=== PATIENT | male | born 1985 | race Caucasian/White ===

== ENCOUNTER 2020-05-28 11:34 | Emergency (ER) | payer MEDICARE, SELFPAY ==
[2020-05-28] VITALS (13 sets, daily range): BP systolic 152–255; BP diastolic 87–128; PULSE 62–98; RESP 18–22; TEMP 36.8–36.9; O2SAT 97–100; BMI 51.7
--- NOTE | 2020-05-28 11:40 | HMH.EDGENADL ---
ED Disposition Clinical Impression: Abdominal pain, generalized, Uncontrolled hypertension Vomiting Qualifiers: Vomiting type: unspecified Vomiting Intractability: non-intractable Nausea presence: with nausea Qualified Code(s): R11.2 - Nausea with vomiting, unspecified Disposition: Home, Self-Care Condition on Discharge: Good Instructions: DI for Abdominal Pain-Adult, DI for Vomiting -- Adult, DI for High Blood Pressure Additional Instructions: Zofran for nausea and vomiting. Protonix. Follow up with your hospital laboratory technician, call for appointment. Follow-up with your primary care doctor this week for your blood pressure. Additional instructions for ABDOMINAL PAIN: See your physician as soon as possible for further evaluation. Return immediately if worsening abdominal pain, vomiting, shortness of breath, fever, vomiting of blood or abdominal distention. Prescriptions: Pantoprazole Sodium [Protonix 40mg tablet] 40 mg PO DAILY #15 tab Transmission Status: Received by [facility] #[id number] Ondansetron [Zofran 4mg ODT] 4 mg PO TIDP PRN #10 tab.rapdis PRN Reason: Nausea And Vomiting Transmission Status: Received by [facility] #[id number] Referrals: Zenon Mitchell [Primary Care Provider] - - Critical Care Critical Care Time: No Attestation: On , the high probability of a clinically significant, sudden or life threatening deterioration of the following system(s) required my full and direct attention, intervention and personal management. The time I documented below is in addition to time spent performing reported procedures but includes the following listed in this critical care notation. Medical Decision Making - Medical Records Medical records reviewed: Yes: I reviewed the patient's medical records. MR Comment: By me in this emergency department on 07/22/2018 for the same symptomatology. Record reviewed. - Elbert Inquiry Pt receiving controlled substance: Yes Elbert was queried for this patient: Yes Risks and benefits of using a controlled substance: were not discussed with pt by me Vital Signs: 05/28/20 11:35 05/28/20 11:41 05/28/20 12:01 Temperature 98.4 F Temperature Source Oral Pulse Rate 94 H 83 Pulse Rate [Right] 98 H Respiratory Rate 20 22 22 Blood Pressure 190/116 H 182/119 H Blood Pressure [Right Arm] 190/110 H Blood Pressure Mean Blood Pressure Mean [Right Arm] 136 Blood Pressure Source Automatic Cuff Automatic Cuff Blood Pressure Position Sitting Sitting 02 Sat by Pulse Oximetry 100 99 99 Oxygen Delivery Method Room Air Room Air 05/28/20 13:01 05/28/20 13:33 05/28/20 14:03 Temperature Temperature Source Pulse Rate 68 62 Pulse Rate [Right] Respiratory Rate Blood Pressure 187/87 H 255/112 H 239/107 H Blood Pressure [Right Arm] Blood Pressure Mean 122 159 Blood Pressure Mean [Right Arm] Blood Pressure Source Blood Pressure Position 02 Sat by Pulse Oximetry 99 100 Oxygen Delivery Method - Lab Data Lab Results 05/28/20 11:45: WBC 15.1 H, RBC 5.42, Hgb 15.4, Hct 47.2, MCV 87.1, MCH 28.4, MCHC 32.6, RDW 14.9, Plt Count 212, MPV 7.8, Neut % (Auto) 87.0 H, Lymph % (Auto) 8.0 L, [place] % (Auto) 4.2, Eos % (Auto) 0.5, Baso % (Auto) 0.3, Neut # (Auto) 13.1 H, Lymph # (Auto) 1.2, [place] # (Auto) 0.6, Eos # (Auto) 0.1, Baso # (Auto) 0.0, Total Counted 100, Neutrophils % (Manual) 83 H, Lymphocytes % (Manual) 15, Monocytes % (Manual) 1 L, Eosinophils % (Manual) 1, Platelet Estimate Normal, RBC Morphology Normal 05/28/20 11:45: Sodium 142, Potassium 3.5, Chloride 105, Carbon Dioxide 25, Anion Gap 15.5 H, BUN 23 H, Creatinine 0.80, Estimated Creat Clear 128, Estimated GFR 109, Est GFR ( Amer) 132, Glucose 117 H, Calcium 10.0, Total Bilirubin 0.8, AST 37, ALT 30, Alkaline Phosphatase 94, Total Protein 8.3 H, Albumin 4.7, Globulin 3.6 H, Albumin/Globulin Ratio 1.3 05/28/20 11:45: Lipase 53 Result diagrams: 05/28/20 11:
[2020-05-28 11:57] LABS: Basophils % 0.3 % (0.1-2.0); Eosinophils # 0.1 K/mm3 (0.0-0.4); Eosinophils % 0.5 % (0.1-12.0); Hematocrit 47.2 % (42.0-52.0); Hemoglobin 15.4 g/dL (14.1-18.0); Lymphocytes # 1.2 K/mm3 (0.7-4.5); Mean Corpuscular HGB Conc 32.6 g/dL (31.8-35.4); Mean Corpuscular Hemoglobin 28.4 pg (27.0-31.2); Mean Corpuscular Volume 87.1 fl (80-94); Mean Platelet Volume 7.8 fl (7.4-10.4); Monocytes # 0.6 K/mm3 (0.1-1.0); Monocytes % 4.2 % (1.7-9.3); Neutrophils # 13.1 K/mm3 (1.8-7.8); Platelet Count 212 K/mm3 (142-424); Red Blood Count 5.42 M/mm3 (4.60-6.20); Red Cell Distribution Width 14.9 % (11.5-17.5); White Blood Count 15.1 K/mm3 (4.8-10.8)
[2020-05-28 12:01] LABS: Alanine Aminotransferase 30 U/L (12-78); Albumin Level 4.7 g/dl (3.5-5.0); Albumin/Globulin Ratio 1.3 (1.1-1.8); Alkaline Phosphatase 94 U/L (38-126); Anion Gap 15.5 mEq/L (5-15); Aspartate Amino Transferase 37 U/L (17-59); Bilirubin,Total 0.8 mg/dl (0.2-1.3); Blood Urea Nitrogen 23 mg/dl (9-20); Carbon Dioxide 25 mmol/L (22.0-30.0); Chloride 105 mmol/L (98-107); Creatinine Clearance Estimated 128 mL/min (50-200); Estimated Glomerular Filt Rate 109 ml/min (>60); GFR (African American) 132 ML/MIN (>60); Globulin 3.6 g/dL (1.3-3.2); Glucose 117 mg/dl (74-100); Lipase 53 U/L (23-300); Potassium 3.5 mmoL/L (3.5-5.1); Sodium 142 mmol/L (136-145); Total Protein,Serum 8.3 g/dl (6.3-8.2)
[2020-05-28 12:03] LABS: MANUAL DIFFERENTIAL MANUAL DIFFERENTIAL (MANUAL DIFF)
[2020-05-28 12:16] LABS: Eosinophils % 1 % (0-3); Lymphocytes % 15 % (10-50); Monocytes % 1 % (2-9); Neutrophils % 83 % (42-76); Platelet Estimate Normal; RBC Morphology Normal; Total Cells Counted 100
--- NOTE | 2020-05-28 12:21 | CT_ITS ---
PROCEDURE: CT ABDOMEN PELVIS W CON CLINICAL INDICATION: abdominal pain Abdominal pain with vomiting COMPARISON: No exams were available for comparison TECHNIQUE: IV Contrast: 75ML Isovue 370 Oral Contrast None Axial images obtained with sagittal and coronal reformats. All CT scans at the facility use one or more dose reduction, viz: automated exposure control, ma/kV adjustment per patient size (including targeted exams where dose is matched to indication, i.e. head), or iterative reconstruction technique. FINDINGS: LOWER THORAX: There are minimal atelectatic or fibrotic changes in the left lung base. ABDOMEN & PELVIS: The liver, spleen, adrenal glands, and pancreas have an unremarkable appearance. No renal or ureteral calculi. No intestinal obstruction or free air. No evidence of appendicitis. There is colonic diverticulosis but no evidence of diverticulitis. Incidental note is made of subcutaneous edema in the central lumbar region. No acute bony findings evident. Surgical clips are present in the left inguinal region. IMPRESSION: No acute finding Dictated by: Jean Dawson MD 05/28/2020 13:08 Jean Dawson MD in [place] 05/28/2020 13:08
--- NOTE | 2020-05-28 12:31 | PC.NURSE ---
Pt to rad.
--- NOTE | 2020-05-28 12:56 | PC.NURSE ---
Pt returned from rad.
--- NOTE | 2020-05-28 14:46 | PC.NURSE ---
PATIENT UP FOR DISCHARGE BUT WAITING FOR TRANSPORTATION IN ROOM DUE TO MEDICATION PATIENT RECEIVED. PT ORIGINALLY TOLD STAFF THAT HIS TRANSPORTATION WAS ONLY 15 MINUTES AWAY, BUT NOW PATIENT INFORMED STAFF THAT IT IS 45 MINUTES AWAY. WILL CONTINUE TO MONITOR PATIENT
== END 2020-05-28 16:07 | disposition home or self-care (01) ==
PROVIDERS: Emergency Provider Emergency Medicine; PCP Family Medicine
DX: R10.84 Generalized abdominal pain (principal); R11.2 Nausea with vomiting, unspecified; I10 Essential (primary) hypertension; K21.9 Gastro-esophageal reflux disease without esophagitis; Z79.899 Other long term (current) drug therapy
CPT/HCPCS: 74177; 80053; 83690; 85007; 85025; 99282; J2405; Q9967

== ENCOUNTER 2020-11-06 11:18 | Emergency (ER) | payer MEDICARE, SELFPAY ==
--- NOTE | 2020-11-06 13:19 | HMH.EDUTC ---
[facility] Disposition Clinical Impression: Pain and swelling of right lower extremity Disposition: Home, Self-Care Condition on Discharge: Good Additional Instructions: Lovenox prescription sent to pharmacy. Need venous doppler ultrasound first thing in the morning. Call PCP after ultrasound for further guidance. Prescriptions: Enoxaparin Sodium [Lovenox 300mg/3ml vial] 159 mg SQ BID 5 Days #10 ml Transmission Status: Pending to [facility] #[id number] Referrals: Nikos Gutiérrez [Primary Care Provider] - Time of Disposition: 13:33 Medical Decision Making - Elbert Inquiry Pt receiving controlled substance: No [facility] HPI - General Stated complaint: pain in rt leg Time Seen by Provider: 11/06/20 13:19 - History of Present Illness Provider Complaint: Patient has had pain in his right lower leg since last night. He has been on his feet more at work and initially thought that was it but it has gotten worse. Has pain and swelling. Has tortuous venous varicosities and the pain seems to travel along the path of one of the veins. He has no history of DVT. Onset (ago): day(s) (1) Location: right, lower extremity Relieving factors: none Exacerbating factors: none Associated symptoms: denies other symptoms Treatments prior to arrival: none - Related Data Home Medications Medication Instructions Recorded Confirmed Omeprazole [Omeprazole 20mg 20 mg PO DAILYP PRN 07/22/18 07/22/18 Capsule] Previous Rx's Medication Instructions Recorded Sucralfate [Carafate 1gm Tab] 1 gm PO ACHS #60 tab 07/22/18 Ondansetron [Zofran 4mg ODT] 4 mg PO TIDP PRN #10 tab.rapdis 05/28/20 Pantoprazole Sodium [Protonix 40mg 40 mg PO DAILY #15 tab 05/28/20 tablet] Enoxaparin Sodium [Lovenox 159 mg SQ BID 5 Days #10 ml 11/06/20 300mg/3ml vial] Allergies Allergy/AdvReac Type Severity Reaction Status Date / Time No Known Allergies Allergy Verified 06/02/18 13:40 [facility] History - Hepatitis A Screen Attestation statement:: This patient has been screened for Hepatitis A risk factors. I have reviewed the patient's past medical history: Yes Medical History: Denies:: Cancer, Diabetes Mellitus Type 1, Diabetes Mellitus Type 2, MRSA Amputation: Yes (RIGHT HAND) Fractures: No - Social History Smoking Status: Unknown if ever smoked Alcohol Intake: never Occupational Status: other ROS Obtained: Yes All systems reviewed & no additional complaints - Cardiovascular Cardiovascular: Reports leg pain with activity, Reports leg edema - Musculoskeletal Musculoskeletal: Reports other (pain and swelling RLE) Physical Exam - General General appearance: alert, in no apparent distress - Head Head exam: normocephalic - Eye Eye exam: Present: PERRL - ENT ENT exam: Present: normal oropharynx, TM's normal bilaterally - Chest Chest inspection: Present: normal inspection, symmetric chest wall rise - Respiratory Respiratory exam: Present: normal lung sounds bilaterally - Cardiovascular Cardiovascular exam: Present: regular rate, normal rhythm - Extremities Exam Extremities exam: Present: tenderness, normal capillary refill, pedal edema, calf tenderness, other (no erythema) - Neurological Exam Neurological exam: Present: alert, oriented X3 - Psychiatric Psychiatric exam: Present: normal affect, normal mood - Skin Skin exam: Present: warm, dry, intact
[2020-11-06 13:21] VITALS: BP 181/96; PULSE 61; RESP 18; TEMP 36.9; O2SAT 100; BMI 50.2
[2020-11-06 14:27] VITALS: BP 174/93; PULSE 65; RESP 18; TEMP 36.9
== END 2020-11-06 14:28 | disposition home or self-care (01) ==
PROVIDERS: Emergency Provider Physician Assistant; PCP Family Medicine
DX: M79.604 Pain in right leg (principal)
CPT/HCPCS: G0463; 96372; 99202

== ENCOUNTER → 2020-11-07 13:50 | Outpatient (CLI) | payer MEDICARE, SELFPAY ==
--- NOTE | 2020-11-07 13:55 | CA_ITS ---
APPROVED REPORT Right Lower Extremity Venous Study for DVT. Head Up Operator: SABINE Indications Lower Extremity Pain: Right Lower Extremity Edema: Right Varicose Veins Venous Insufficiency Vein Imaging CFV (R): compressive, spontaneous, phasic, augmentation SFJ (R): compressive, spontaneous, phasic, augmentation FEM (R): compressive, spontaneous, phasic, augmentation POP (R): compressive, spontaneous, phasic, augmentation DFV (R): compressive, spontaneous, phasic, augmentation PTV (R): compressive, spontaneous, phasic, augmentation GSV (R): compressive, spontaneous, phasic, augmentation SSV (R): compressive, spontaneous, phasic, augmentation Peroneals (R):compressive, spontaneous, phasic, augmentation GAS (R): compressive, spontaneous, phasic, augmentation Findings Color flow duplex demonstrates no evidence of DVT of the following right lower extremity Veins:Common Femoral Vein, Femoral Vein, Popliteal Vein, Deep Femoral Vein, Posterior Tibial Veins, Peroneal Veins. Negative for DVT. Multipe calf varicosities at area of redness. All Varicosities demonstrate complete compressions. Conclusion Negative for DVT. Electronically signed by : Jean Dawson MD 11/07/2020 15:10:09
== END ==
PROVIDERS: PCP Family Medicine; Visit Provider Physician Assistant
DX: M79.661 Pain in right lower leg (principal); R60.0 Localized edema
CPT/HCPCS: 93971